=== PATIENT | male | born 1935 | race Caucasian/White ===

== ENCOUNTER 2016-11-07 23:18 | Emergency (ER) | payer MEDICARE ==
[~2016-11-07] VITALS: Ht 177.8 cm; Wt 95.5 kg
[~2016-11-07 23:18] MED LIST: AMLO5TAB96 PO; ASPI81TA82 PO; GLUCLIQ PO; MECL-62 PO; METO50CR PO; MEVA40TA PO; TERA5CAP34 PO
[2016-11-07 23:20] VITALS: BP 161/78; PULSE 87; RESP 16; TEMP 98.9; O2SAT 95
--- NOTE | 2016-11-07 23:52 | PD ---
HPI Chief Complaint: Cold / Flu Symptoms Time Seen by Provider: 23:37 Travel History International Travel<30 days: No Contact w/Intl Traveler<30days: No Traveled to known affect area: No History of Present Illness HPI 81-year-old male complains of sore throat coughing congestion and low-grade fever. Patient states that the symptoms started a week ago. Patient states that he had persistent productive cough. Patient complaining chest pain with coughing. Patient states that the chest pains or pressure pain across anterior chest wall. Patient denies any pain radiation. Patient denies any palpitation diaphoresis. Patient has history of hypertension and hyperlipidemia. Patient denies any history of diabetes. Patient denies any history of CAD. Patient has history of sleep apnea on CPAP at night. Patient is a nonsmoker. PFSH Past Medical History Hx Anticoagulant Therapy: Yes Arthritis: Yes Cardiovascular Problems: Yes (HTN) Genitourinary: Yes (BPH) Hypertension: Yes Musculoskeletal: Yes (ARTHRITIS) Reproductive: Yes Respiratory: Yes (Sleep Apnea) Past Surgical History Abdominal Surgery: Yes (CHOLECYSTECTOMY) Body Medical Devices: CARDIAC STENT Cardiac Surgery: Yes (CABG) Eye Surgery: Yes (DAHIANA. UPPER BLEPH, DAHIANA. CATARACT EXTRACT.) Genitourinary Surgery: Yes (1996 TURP) Other Surgery: Yes Social History Alcohol Use: Yes (OCCASSIONALLY) Tobacco Use: No Substance Use: No Allergies-Medications (Allergen,Severity, Reaction): Coded Allergies: No Known Allergies (Verified , 12/03/15) Reported Meds & Prescriptions Reported Meds & Active Scripts Active Meclizine Hcl (Meclizine HCl) 25 Mg Tab 25 Mg PO TID PRN Reported Aspir-81 (Aspirin) 81 Mg Tab 81 Mg PO DAILY Glucosamine/Chondroitin (Raavkxmiesb-Jvbvnrwvwbq-Nhokjg) Liq 1 Oz PO DAILY Hytrin (Terazosin HCl) 5 Mg Cap 5 Mg PO HS Lovastatin 40 Mg Tab 40 Mg PO BID Norvasc (Amlodipine Besylate) 5 Mg Tab 5 Mg PO BID Metoprolol Succinate ER 50 mg (Metoprolol Succinate) 50 Mg Tab 50 Mg PO BID Review of Systems General / Constitutional: No: Fever Eyes: No: Visual changes HENT: No: Headaches Cardiovascular: Positive: Chest Pain or Discomfort Respiratory: Positive: Cough, Shortness of Breath Gastrointestinal: No: Abdominal Pain Genitourinary: No: Dysuria Musculoskeletal: No: Pain Skin: No Rash Neurologic: No: Weakness Psychiatric: No: Depression Endocrine: No: Polydipsia Hematologic/Lymphatic: No: Easy Bruising Physical Exam Narrative GENERAL: Well-nourished, well-developed patient. SKIN: Focused skin assessment warm/dry. HEAD: Normocephalic. EYES: No scleral icterus. No injection or drainage. NECK: Supple, trachea midline. No JVD or lymphadenopathy. CARDIOVASCULAR: Regular rate and rhythm without murmurs, gallops, or rubs. RESPIRATORY: Breath sounds equal bilaterally. No accessory muscle use. Patient has diffuse rhonchi left lung, mid to lower lung area. No wheezes. GASTROINTESTINAL: Abdomen soft, non-tender, nondistended. MUSCULOSKELETAL: No cyanosis, or edema. BACK: Nontender without obvious deformity. No CVA tenderness. Neurologic exam normal. Data Data Last Documented VS Vital Signs Date Time Temp Pulse Resp B/P Pulse Ox O2 Delivery O2 Flow Rate FiO2 11/08/16 00:00 98 Nasal Cannula 2 11/07/16 23:58 87 20 177/80 11/07/16 23:20 98.9 Orders Electrocardiogram (11/07/16 23:45) Complete Blood Count With Diff (11/07/16 23:45) Comprehensive Metabolic Panel (11/07/16 23:45) Creatine Kinase (Cpk) (11/07/16 23:45) Troponin I (11/07/16 23:45) B-Type Natriuretic Peptide (11/07/16 23:45) Prothrombin Time / Inr (Pt) (11/07/16 23:45) Act Partial Throm Time (Ptt) (11/07/16 23:45) Blood Culture (11/07/16 23:45) Urinalysis - C+S If Indicated (11/07/16 23:45) Influenzae A/B Antigen (11/07/16 23:45) Chest, Single Ap (11/07/16 23:45) Iv Access Insert/Monitor (11/07/16 23:45) Ecg Monitoring (11/07/16 23:45) Oximetry (11/07/16 23:45) Ceftriaxone Inj (Rocephin Inj) (11/08/16 00:45) Azithromycin Inj (Zithromax Inj) (11/08/16 00:45) Labs Laboratory Tests Test 11/07/16 23:59 White Blood Count 8.4 TH/MM3 Red Blood Count 3.98 MIL/MM3 Hemoglobin 12.3 GM/DL Hematocrit 36.4 % Mean Corpuscular Volume 91.6 FL Mean Corpuscular Hemoglobin 30.8 PG Mean Corpuscular Hemoglobin 33.7 % Concent Red Cell Distribution Width 13.6 % Platelet Count 265 TH/MM3 Mean Platelet Volume 8.3 FL Neutrophils (%) (Auto) 77.6 % Lymphocytes (%) (Auto) 10.7 % Monocytes (%) (Auto) 8.3 % Eosinophils (%) (Auto) 3.0 % Basophils (%) (Auto) 0.4 % Neutrophils # (Auto) 6.5 TH/MM3 Lymphocytes # (Auto) 0.9 TH/MM3 Monocytes # (Auto) 0.7 TH/MM3 Eosinophils # (Auto) 0.3 TH/MM3 Basophils # (Auto) 0.0 TH/MM3 CBC Comment DIFF FINAL Differential Comment Prothrombin Time 11.6 SEC Prothromb Time International 1.0 RATIO Ratio Activated Partial 25.2 SEC Thromboplast Time Sodium Level 138 MEQ/L Potassium Level 3.3 MEQ/L Chloride Level 102 MEQ/L Carbon Dioxide Level 25.6 MEQ/L Anion Gap 10 MEQ/L Blood Urea Nitrogen 33 MG/DL Creatinine 1.68 MG/DL Estimat Glomerular Filtration 39 ML/MIN Rate Random Glucose 96 MG/DL Calcium Level 8.4 MG/DL Total Bilirubin 0.3 MG/DL Aspartate Amino Transf 25 U/L (AST/SGOT) Alanine Aminotransferase 38 U/L (ALT/SGPT) Alkaline Phosphatase 73 U/L Total Creatine Kinase 135 U/L Troponin I LESS THAN 0.02 NG/ML B-Type Natriuretic Peptide 17 PG/ML Total Protein 7.1 GM/DL Albumin 3.0 GM/DL [facility] Medical Decision Making Medical Screen Exam Complete: Yes Emergency Medical Condition: Yes Interpretation(s) 12:13 AM. EKG shows sinus rhythm nonspecific ST-T wave change. Unchanged from previous EKG. Differential Diagnosis Differential diagnosis including bronchitis, pneumonia, PE, pneumothorax. Narrative Course 81-year-old male with productive cough and chest discomfort. Diagnosis Primary Impression: Pneumonia Qualified Code: J18.1 - Pneumonia of left lower lobe due to infectious organism Additional Impression: Hypokalemia Patient Instructions: General Instructions Additional Instructions: Take medications as directed. Tylenol for fever. Follow-up with personal physician. Return if persistent problem or worse. Med/Other Pt SpecificInfo: Prescription(s) given Scripts Azithromycin (Zithromax Z-Balta)250 Mg [id number] Mg PO DIRECTED #1 DSPK Ref 0 500 MG (2 tabs) day 1, then 1 tab days 2-5. Prov:Carlos Pickett MD 11/08/16 Cefuroxime 500 Mg [id number] Mg PO BID #20 TAB Ref 0 Prov:Carlos Pickett MD 11/08/16 Potassium Chloride ER 10 Meq Cap10 Meq PO DAILY #5 CAP Ref 0 Prov:Carlos Pickett MD 11/08/16 Disposition: 01 DISCHARGE HOME Condition: Stable Carlos Pickett MD Nov 07, 2016 23:52
[2016-11-07 23:58] VITALS: BP 177/80; PULSE 87; RESP 20; O2SAT 93
[2016-11-08 00:20] LABS: AUTOMATED NEUTROPHIL # 6.5 TH/MM3 (1.8-7.7); BASOPHIL % 0.4 % (0.0-2.0); EOSINOPHIL # 0.3 TH/MM3 (0-0.4); HEMATOCRIT 36.4 % (39.0-51.0); HEMO FLAGS DIFF FINAL; LYMPH % 10.7 % (9.0-44.0); LYMPHOCYTE # 0.9 TH/MM3 (1.0-4.8); MEAN CELL VOLUME 91.6 FL (80.0-100.0); MEAN CORPUSCULAR HEMOGLOBIN 30.8 PG (27.0-34.0); MEAN CORPUSCULAR HGB CONC 33.7 % (32.0-36.0); MONO % 8.3 % (0.0-8.0); NEUT % 77.6 % (16.0-70.0); PLATELET COUNT 265 TH/MM3 (150-450); RED BLOOD COUNT 3.98 MIL/MM3 (4.50-5.90); RED CELL DISTRIBUTION WIDTH 13.6 % (11.6-17.2); WHITE BLOOD COUNT 8.4 TH/MM3 (4.0-11.0)
[2016-11-08 00:33] LABS: APTT (PATIENT) 25.2 SEC (24.3-30.1); PROTHROMBIN TIME - PATIENT 11.6 SEC (9.8-11.6)
[2016-11-08 00:39] LABS: ALT (GPT) 38 U/L (12-78); ANION GAP 10 MEQ/L (5-15); AST (GOT) 25 U/L (15-37); BICARBONATE 25.6 MEQ/L (21.0-32.0); BLOOD UREA NITROGEN 33 MG/DL (7-18); CHLORIDE 102 MEQ/L (98-107); GLOMERULAR FILTRATION RATE 39 ML/MIN (>89); POTASSIUM 3.3 MEQ/L (3.5-5.1); SODIUM (NA) 138 MEQ/L (136-145)
[2016-11-08 00:43] LABS: ALKALINE PHOSPHATASE 73 U/L (45-117); CREATINE KINASE 135 U/L (39-308); TOTAL BILIRUBIN ADULT 0.3 MG/DL (0.2-1.0)
[2016-11-08] MEDS ORDERED: cefTRIAXone INJ 1,000 MG in SODIUM CHLORIDE 0.9% INJ 100 ML IV ONE (00:45)
[2016-11-08] MEDS ORDERED: AZITHROMYCIN INJ 500 MG in SODIUM CHLOR 0.9% 250 ML INJ 250 ML IV ONE (00:45)
[2016-11-08] MEDS ORDERED: POTA10CA PO (01:02)
[2016-11-08] MEDS ORDERED: ZITHTAB PO (01:02)
[2016-11-08] MEDS ORDERED: CEFU1TAB20 PO (01:02)
[2016-11-08] MEDS ORDERED: POTASSIUM CHLORIDE 20 MEQ CONTROLLED RELEASE TAB PO ONE (01:15)
--- NOTE | 2016-11-08 01:17 | RADRPT ---
EXAM DATE/TIME: 11/08/2016 00:11 [place] COMPARISON: No previous studies available for comparison. INDICATIONS : Cough. MEDICAL HISTORY : Renal cell carcinoma. Hypertension SURGICAL HISTORY : Nephrectomy, right. CABG ENCOUNTER: Initial ACUITY: 1 week PAIN SCORE: 0/10 LOCATION: Bilateral chest FINDINGS: A single view of the chest demonstrates minimal left basilar density. Heart enlarged. Previous CABG. Right lung clear. Osseous structures are intact. CONCLUSION: Minimal left basilar density likely atelectasis. Luis Alberto Kiser MD on November 08, 2016 at 1:15 Board Certified Radiologist. This report was verified electronically.
[2016-11-08 02:25] VITALS: BP 179/82; TEMP 99.2
--- NOTE | 2016-11-08 12:25 | EKG ---
Date Performed: 11/07/2016 Time Performed: 23:54:09 PTAGE: 81 years EKG: Sinus rhythm MINIMAL VOLTAGE CRITERIA FOR LVH, CONSIDER NORMAL VARIANT ANTEROSEPTAL MYOCARDIAL INFARCTION ABNORMA L ECG PREVIOUS TRACING : 01/11/2016 09.19 Compared to prior tracing no significant change DOCTOR: Eligio Artis Interpretating Date/Time 11/08/2016 12:22:59
== END 2016-11-08 02:45 | disposition home or self-care (01) ==
LOC: NEPD 23:18
DX: J18.9 Pneumonia, unspecified organism (principal); E87.6 Hypokalemia; R94.31 Abnormal electrocardiogram [ECG] [EKG]; I10 Essential (primary) hypertension; E78.5 Hyperlipidemia, unspecified; G47.30 Sleep apnea, unspecified; M13.88 Other specified arthritis, other site; N40.0 Benign prostatic hyperplasia without lower urinary tract symptoms; I25.2 Old myocardial infarction
CPT/HCPCS: 71010; 80053; 82550; 83880; 84484; 85025; 85610; 85730; 87040; 87804; 93005; 96365; 96375; 99285; J0456; J0696; J7050